=== PATIENT | female | born 1975 | race Caucasian/White ===

== ENCOUNTER 2018-10-03 15:25 | Emergency (ER) | payer OTHER ==
[~2018-10-03] VITALS: Ht 162.6 cm; Wt 142.9 kg
[2018-10-03] MEDS ORDERED: fentaNYL PF VIAL 100 MCG/2 ML VIAL IV ONE (16:00)
--- NOTE | 2018-10-03 16:07 | PHYS DOC ---
Adult General Chief Complaint Chief Complaint: abdominal pain HPI HPI Patient is a 43 year old female who presents with complaining of abdominal pain. Patient complaining of intermittent episodes of right upper quadrant pain for several months that getting worse for the last 3 days. Patient complaining of sharp pain of right upper quadrant that usually happen after eating without radiation. Patient complaining of nausea without vomiting. Patient states she had the episode of diarrhea that improved. Patient denies fever and chills, urinary symptoms, vaginal bleeding or discharge. Patient states she is concern for her gallbladder. Patient complaining of bilateral lower extremity erythema and edema of the last few days and states she thinks she has cellulitis. Patient did not have history of diabetes. Patient also states she ran out of her Depakote for one week and needs refill of her medicine because she does not have a primary care physician. Review of Systems Review of Systems Constitutional: Denies fever or chills [] Eyes: Denies change in visual acuity, redness, or eye pain [] HENT: Denies nasal congestion or sore throat [] Respiratory: Denies cough or shortness of breath [] Cardiovascular: No additional information not addressed in HPI [] GI: Reports abdominal pain, nausea, diarrhea [] : Denies dysuria or hematuria [] Musculoskeletal: Denies back pain or joint pain [] Integument: Denies rash, reports erythema] Neurologic: Denies headache, focal weakness or sensory changes [] Endocrine: Denies polyuria or polydipsia [] All other systems were reviewed and found to be within normal limits, except as documented in this note. Current Medications Current Medications Current Medications Medications (Trade) Dose Ordered Sig/[facility] Start Time Stop Time Status Last Admin Dose Admin Fentanyl Citrate (Fentanyl 2ml Vial) 50 mcg 1X ONCE 10/03/18 16:00 10/03/18 16:40 DC 10/03/18 17:00 50 MCG Allergies Allergies Allergies Coded Allergies Type Severity Reaction Last Updated Verified Penicillins Allergy Intermediate 10/03/18 Yes cephalexin Allergy Intermediate 10/03/18 Yes Physical Exam Physical Exam Constitutional: Well nourished, mild distress, non-toxic appearance. [] HENT: Normocephalic, atraumatic, bilateral external ears normal, oropharynx moist, no oral exudates, nose normal. [] Eyes: PERRLA, EOMI, conjunctiva normal, no discharge. [] Neck: Normal range of motion, no tenderness, supple, no stridor. [] Cardiovascular:Heart rate regular rhythm, no murmur [] Lungs & Thorax: Bilateral breath sounds clear to auscultation [] Abdomen: Bowel sounds normal, soft, right upper quadrant guarding and tenderness , no masses, no pulsatile masses. [] Skin: Warm, dry, no erythema, no rash. [] Back: No tenderness, no CVA tenderness. [] Extremities: No tenderness, no cyanosis, no clubbing, ROM intact, bilateral anterior leg mild erythema and trace edema without tenderness . Neurologic: Alert and oriented X 3, normal motor function, normal sensory function, no focal deficits noted. [] Psychologic: Affect anxious, judgement normal, mood normal. [] Current Patient Data Vital Signs Vital Signs Date Time Temp Pulse Resp B/P (MAP) Pulse Ox O2 Delivery O2 Flow Rate FiO2 10/03/18 17:00 98 Room Air 10/03/18 15:30 98.8 92 23 149/91 (110) 98.8 Lab Values Laboratory Tests Test 10/03/18 15:40 10/03/18 15:49 10/03/18 16:30 Urine Collection Type Unknown Urine Color Yellow Urine Clarity Cloudy Urine pH 6.0 Urine Specific Harrison 1.020 Urine Protein Negative mg/dL (NEG-TRACE) Urine Glucose (UA) Negative mg/dL (NEG) Urine Ketones (Stick) Negative mg/dL (NEG) Urine Blood Moderate (NEG) Urine Nitrite Positive (NEG) Urine Bilirubin Negative (NEG) Urine Urobilinogen Dipstick 1.0 mg/dL (0.2 mg/dL) Urine Leukocyte Esterase Large (NEG) Urine RBC 3-5 /HPF (0-2) Urine WBC >40 /HPF (0-4) Urine Squamous Epithelial Cells Mod /LPF Urine Bacteria Many /HPF (0-FEW) Urine Opiates Screen Neg (NEG) Urine Methadone Screen Neg (NEG) Urine Barbiturates Neg (NEG) Urine Phencyclidine Screen Pos (NEG) Urine Amphetamine/Methamphetamine Pos (NEG) Urine Benzodiazepines Screen Neg (NEG) Urine Cocaine Screen Neg (NEG) Urine Cannabinoids Screen Neg (NEG) Urine Ethyl Alcohol Neg (NEG) POC Urine HCG, Qualitative Hcg negative (Negative) White Blood Count 9.2 x10^3/uL (4.0-11.0) Red Blood Count 4.55 x10^6/uL (3.50-5.40) Hemoglobin 13.5 g/dL (12.0-15.5) Hematocrit 40.6 % (36.0-47.0) Mean Corpuscular Volume 89 fL (79-100) Mean Corpuscular Hemoglobin 30 pg (25-35) Mean Corpuscular Hemoglobin Concent 33 g/dL (31-37) Red Cell Distribution Width 14.0 % (11.5-14.5) Platelet Count 305 x10^3/uL (140-400) Neutrophils (%) (Auto) 61 % (31-73) Lymphocytes (%) (Auto) 28 % (24-48) Monocytes (%) (Auto) 9 % (0-9) Eosinophils (%) (Auto) 1 % (0-3) Basophils (%) (Auto) 1 % (0-3) Neutrophils # (Auto) 5.6 x10^3uL (1.8-7.7) Lymphocytes # (Auto) 2.5 x10^3/uL (1.0-4.8) Monocytes # (Auto) 0.8 x10^3/uL (0.0-1.1) Eosinophils # (Auto) 0.1 x10^3/uL (0.0-0.7) Basophils # (Auto) 0.1 x10^3/uL (0.0-0.2) Sodium Level 139 mmol/L (136-145) Potassium Level 3.5 mmol/L (3.5-5.1) Chloride Level 101 mmol/L (98-107) Carbon Dioxide Level 26 mmol/L (21-32) Anion Gap 12 (6-14) Blood Urea Nitrogen 17 mg/dL (7-20) Creatinine 0.7 mg/dL (0.6-1.0) Estimated GFR (Cockcroft-Gault) 91.3 BUN/Creatinine Ratio 24 (6-20) H Glucose Level 115 mg/dL (70-99) H Lactic Acid Level 1.9 mmol/L (0.4-2.0) Calcium Level 9.0 mg/dL (8.5-10.1) Total Bilirubin 0.3 mg/dL (0.2-1.0) Aspartate Amino Transferase (AST) 15 U/L (15-37) Alanine Aminotransferase (ALT) 22 U/L (14-59) Alkaline Phosphatase 71 U/L (46-116) Troponin I Quantitative < 0.017 ng/mL (0.000-0.055) [id number]-Type Natriuretic Peptide 364 pg/mL (0-124) H Total Protein 6.7 g/dL (6.4-8.2) Albumin 3.5 g/dL (3.4-5.0) Albumin/Globulin Ratio 1.1 (1.0-1.7) Lipase 283 U/L (73-393) Laboratory Tests 10/03/18 16:30 Laboratory Tests 10/03/18 16:30 EKG EKG [] Radiology/Procedures Radiology/Procedures [facility] [address] [place] [address] IMAGING REPORT Signed PATIENT: KENYA YAN ACCOUNT: [id number] : 1975 LOCATION: ER AGE: 43 SEX: F EXAM STATUS: REG ER ORD. PHYSICIAN: BOUBACAR ARRINGTON MD REASON: right upper quadrant pain PROCEDURE: ABDOMEN LTD Examination: Ultrasound abdomen right upper quadrant HISTORY: History of right upper quadrant pain COMPARISON: None available FINDINGS: The echogenicity liver grossly appears unremarkable.The visualized gallbladder demonstrate no evidence of gallstones. The right kidney measures 13.2 cm in length and the visualized IVC is within normal limits of dimension. Examination limited due to bowel gas. The pancreas is not well-visualized due to bowel gas IMPRESSION: Unremarkable exam. Electronically signed by: Deric Streeter MD (10/03/2018 4:52 PM) [id number] DICTATED and SIGNED BY: DERIC STREETER MD DATE: 10/03/18 0051 Course & Med Decision Making Course & Med Decision Making Pertinent Labs and Imaging studies reviewed. (See chart for details) discharge: I've spoken with the patient and/or caregivers. I've explained the patient's condition, diagnosis and treatment plan based on information available to me at this time. I've answered the patient's and/or caregivers questions and addressed any concerns. The patient and/or caregivers have a good understanding the patient's diagnosis, condition and treatment plan as can be expected at this point. Vital signs have been stabilized. The patient's condition is stable for discharge from the emergency department. The patient will pursue further outpatient evaluation with her primary care provider or other designated consulting physician as outlined in the discharge instructions. Patient and/or caregivers are agreeable to this plan of care and follow-up instructions have been explained in detail. The patient and/or caregivers have received these instructions in written format and expressed understanding of these discharge instructions. The patient and her caregivers are aware that if any significant change in condition or worsening of symptoms should prompt him to immediately return to this of the closest emergency department. If an emergent department is not readily available I would encourage him to call 911. Dragon Disclaimer Dragon Disclaimer This electronic medical record was generated, in whole or in part, using a voice recognition dictation system. Departure Departure Impression: Primary Impression: Urinary tract infection Additional Impressions: Methamphetamine abuse PCP (phencyclidine) abuse Morbid obesity Abdominal pain Lower extremity cellulitis Anxiety Disposition: HOME, SELF-CARE (at 1737) Condition: IMPROVED Referrals: NO PCP (PCP) Patient Instructions: Medication Refill, Emergency Department, Substance Abuse- Brief, Urinary Tract Infection Additional Instructions: Drink plenty of liquids Follow-up with your primary care physician in 1-2 days for refill of medication Return to ER if not getting better Scripts Naproxen (NAPROSYN) 500 Mg Tablet 1 TAB PO BID for pain, #20 TAB Prov: BOUBACAR ARRINGTON MD 10/03/18 Sulfamethoxazole/Trimethoprim (BACTRIM DS TABLET) 1 Each Tablet 1 TAB PO BID for infection, #14 TAB Prov: BOUBACAR ARRINGTON MD 10/03/18 Problem Qualifiers Primary Impression: Urinary tract infection Urinary tract infection type: site unspecified Hematuria presence: without hematuria Qualified Codes: N39.0 - Urinary tract infection, site not specified Additional Impressions: Abdominal pain Abdominal location: unspecified location Qualified Codes: R10.9 - Unspecified abdominal pain Lower extremity cellulitis Laterality: unspecified laterality Qualified Codes: L03.119 - Cellulitis of unspecified part of limb BOUBACAR ARRINGTON MD Oct 03, 2018 16:07
[2018-10-03 16:08] LABS: BILIRUBIN,URINE NEGATIVE (NEG); CLARITY,URINE CLOUDY; COLOR,URINE YELLOW; NITRITE,URINE POSITIVE (NEG); PROTEIN,URINE NEGATIVE (NEG-TRACE)
[2018-10-03 16:13] LABS: BACTERIA,URINE MANY /HPF (0-FEW); SQUAMOUS EPITHELIAL CELL,UR MOD /LPF; WBC,URINE >40 /HPF (0-4)
[2018-10-03 16:19] LABS: AMPHETAMINE/METHAMPHETAMINE POS (NEG); BARBITURATES NEG (NEG); BENZODIAZEPINES NEG (NEG); CANNABINOIDS NEG (NEG); COCAINE NEG (NEG); METHADONE NEG (NEG); OPIATES NEG (NEG); PHENCYCLIDINE POS (NEG)
[2018-10-03 16:39] LABS: BASO # 0.1 x10^3/uL (0.0-0.2); BASO % 1 % (0-3); EOS # 0.1 x10^3/uL (0.0-0.7); EOS % 1 % (0-3); HEMATOCRIT 40.6 % (36.0-47.0); HEMOGLOBIN 13.5 g/dL (12.0-15.5); LYMPH # 2.5 x10^3/uL (1.0-4.8); LYMPH % 28 % (24-48); MEAN CORPUSCULAR HEMOGLOBIN 30 pg (25-35); MEAN CORPUSCULAR HGB CONC 33 g/dL (31-37); MEAN CORPUSCULAR VOLUME 89 fL (79-100); MONO # 0.8 x10^3/uL (0.0-1.1); MONO % 9 % (0-9); NEUT # 5.6 x10^3uL (1.8-7.7); NEUT % 61 % (31-73); PLATELET COUNT 305 x10^3/uL (140-400); RED BLOOD COUNT 4.55 x10^6/uL (3.50-5.40); WHITE BLOOD COUNT 9.2 x10^3/uL (4.0-11.0)
[2018-10-03 16:53] LABS: CREATININE 0.7 mg/dL (0.6-1.0); GFR 91.3; POTASSIUM 3.5 mmol/L (3.5-5.1)
--- NOTE | 2018-10-03 16:55 | RAD ---
Examination: Ultrasound abdomen right upper quadrant HISTORY: History of right upper quadrant pain COMPARISON: None available FINDINGS: The echogenicity liver grossly appears unremarkable.The visualized gallbladder demonstrate no evidence of gallstones. The right kidney measures 13.2 cm in length and the visualized IVC is within normal limits of dimension. Examination limited due to bowel gas. The pancreas is not well-visualized due to bowel gas IMPRESSION: Unremarkable exam. Electronically signed by: Deric Streeter MD (10/03/2018 4:52 PM) [facility]
[2018-10-03 16:57] LABS: ALBUMIN 3.5 g/dL (3.4-5.0); ALBUMIN/GLOBULIN RATIO 1.1 (1.0-1.7); TOTAL BILIRUBIN 0.3 mg/dL (0.2-1.0); TOTAL PROTEIN 6.7 g/dL (6.4-8.2)
[2018-10-03] MEDS ORDERED: SULF1TAB24 PO (17:41)
[2018-10-03] MEDS ORDERED: NAPR-683 PO (17:41)
[2018-10-03 17:51] VITALS: BP 147/67
--- NOTE | 2018-10-09 10:04 | VNOTE ---
CALL BACK NOTE CALL BACK Microbiology 10/03/18 Urine Culture - Final, Complete 10/03/18 Urine Culture Result 1 (PATRICK) - Final, Complete 10/03/18 Antimicrobic Susceptibility - Final, Complete Patient was put on Bactrim to cover her for cellulitis and UTI, her urine culture shows she is resistant to Bactrim. Called and left a voicemail. LYUDMILA JOSEPH APRN Oct 09, 2018 10:04
== END 2018-10-03 18:20 | disposition home or self-care (01) ==
LOC: EDBD 15:25 → ER 15:25
DX: N39.0 Urinary tract infection, site not specified (principal); R10.11 Right upper quadrant pain; L03.116 Cellulitis of left lower limb; L03.115 Cellulitis of right lower limb; E66.01 Morbid (severe) obesity due to excess calories; Z68.43 Body mass index [BMI] 50.0-59.9, adult; F41.9 Anxiety disorder, unspecified; F16.10 Hallucinogen abuse, uncomplicated; F15.10 Other stimulant abuse, uncomplicated; R60.0 Localized edema; Z88.0 Allergy status to penicillin; Z88.1 Allergy status to other antibiotic agents
CPT/HCPCS: 36415; 76705; 80053; 80307; 81001; 81025; 83605; 83690; 83880; 84484; 85025; 87086; 96374; 99284; J3010; 87186

== ENCOUNTER 2021-04-30 12:37 | Emergency (ER) | payer SELFPAY ==
[~2021-04-30] VITALS: Ht 165.1 cm; Wt 122.5 kg
[~2021-04-30 12:37] MED LIST: NAPR-683 PO; SULF1TAB24 PO
[2021-04-30] MEDS ORDERED: IV NORMAL SALINE 1000ML BAG 1,000 ML IV ONE (13:30)
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
[2021-04-30 14:14] LABS: BILIRUBIN,URINE SMALL (NEG); CLARITY,URINE CLOUDY; COLOR,URINE AMBER; NITRITE,URINE POSITIVE (NEG); PROTEIN,URINE 100 mg/dL (NEG-TRACE); UROBILINOGEN,URINE 0.2 mg/dL (0.2 mg/dL)
[2021-04-30 14:23] LABS: BACTERIA,URINE MODERATE /HPF (0-FEW); BARBITURATES NEG (NEG); BENZODIAZEPINES NEG (NEG); CANNABINOIDS NEG (NEG); COCAINE POS (NEG); HYALINE CASTS, URINE MODERATE /HPF; METHADONE NEG (NEG); OPIATES NEG (NEG); PHENCYCLIDINE POS (NEG)
[2021-04-30 14:24] LABS: RBC,URINE OCC /HPF (0-2)
[2021-04-30 14:27] LABS: AMPHETAMINE/METHAMPHETAMINE POS (NEG)
[2021-04-30] MEDS ORDERED: HALOPERIDOL LACTATE 5 MG/ML VIAL. IVP ONE (14:30)
--- NOTE | 2021-04-30 14:36 | RAD ---
XR CHEST 1V History: Chest pain Comparison: 09/15/2018 Technique: AP radiograph of the chest. Findings: The lungs are adequately and symmetrically inflated. No airspace consolidation, pleural effusion or p neumothorax. The cardiomediastinal silhouette and pulmonary vasculature are within normal limits. No acute osseous abnormality. Soft tissues are unremarkable. Impression: 1. No acute cardiopulmonary process. Electronically signed by: Jamarcus Osuna MD (04/30/2021 2:34 PM) [id number]
[2021-04-30 15:26] LABS: BASO # 0.1 x10^3/uL (0.0-0.2); BASO % 1 % (0-3); EOS % 0 % (0-3); HEMATOCRIT 42.1 % (36.0-47.0); HEMOGLOBIN 14.5 g/dL (12.0-15.5); LYMPH # 2.6 x10^3/uL (1.0-4.8); LYMPH % 23 % (24-48); MEAN CORPUSCULAR HEMOGLOBIN 30 pg (25-35); MEAN CORPUSCULAR HGB CONC 35 g/dL (31-37); MEAN CORPUSCULAR VOLUME 87 fL (79-100); MONO # 0.9 x10^3/uL (0.0-1.1); MONO % 8 % (0-9); NEUT # 7.4 x10^3/uL (1.8-7.7); NEUT % 67 % (31-73); PLATELET COUNT 275 x10^3/uL (140-400); RED BLOOD COUNT 4.86 x10^6/uL (3.50-5.40); RED CELL DISTRIBUTION WIDTH 14.5 % (11.5-14.5); WHITE BLOOD COUNT 10.9 x10^3/uL (4.0-11.0)
[2021-04-30 15:39] LABS: CALCIUM 8.7 mg/dL (8.5-10.1); CREATININE 0.8 mg/dL (0.6-1.0); GFR 77.2; POTASSIUM 3.3 mmol/L (3.5-5.1)
[2021-04-30 15:45] LABS: ALBUMIN 3.8 g/dL (3.4-5.0); ALBUMIN/GLOBULIN RATIO 1.1 (1.0-1.7); TOTAL BILIRUBIN 1.1 mg/dL (0.2-1.0); TOTAL PROTEIN 7.4 g/dL (6.4-8.2)
[2021-04-30] MEDS ORDERED: FLUORESCEIN OPHTH TEST STRIP. OU ONE (16:15)
[2021-04-30] MEDS ORDERED: TETRACAINE 0.5% OPHTH SOLUTION 4ML BOTTLE. OU ONE (16:15)
[2021-04-30] MEDS ORDERED: CIPROFLOXACIN 400MG PREMIX 200 ML IV ONE (16:15)
--- NOTE | 2021-04-30 16:24 | RAD ---
CT HEAD/BRAIN WO Date: 04/30/2021 4:13 PM Clinical Indication: Reason: mental status change / Spl. Instructions: / History: Comparison: None. Technique: 5 mm axial tomographic images were obtained of the head without contrast. These were view ed on brain and bone windows. One or more of the following dose reduction techniques were utilized: A utomated exposure control (AEC), Adjustment of mA and/or kV according to patient size, Use of iterati ve reconstruction technique such as ASiR, CT scan done according to ALARA and image gently/image joshi ly Findings: The brain parenchyma is normal in attenuation. No intra- or extra-axial mass or fluid collection. No acute hemorrhage. The ventricles are normal in size, shape, and morphology. The martines-white matter clifton ction is normal. The subarachnoid cisterns are patent. The visualized paranasal sinuses are normal. The visualized portions of the orbits and globes are no rmal. The mastoid air cells are clear. The rack washer topogram shows no lytic lesion or fracture. Impression: No acute intracranial process. Electronically signed by: Evelio Gunter MD (04/30/2021 4:21 PM) [facility]
--- NOTE | 2021-04-30 16:36 | EKG ---
[facility] [address] [place] [address] Test Date: 2021-04-30 Test Time: 13:10:06 Pat Name: KENYA YAN Department: Room: Gender: F Sqe: : 1975 Requested By: OLI WINTERS Order Number: [id number] Reading MD: Edis Restrepo Measurements Intervals [place] Rate: 115 P: 47 IN: 152 QRS: -72 QRSD: 84 T: 59 QT: 332 QTc: 461 Interpretive Statements SINUS TACHYCARDIA ABNORMAL LEFT AXIS DEVIATION S1,S2,S3 PATTERN LEFT ANTERIOR FASCICULAR BLOCK ABNORMAL ECG RI6.01 No previous ECG available for comparison Electronically Signed On 05-04-2021 9:53:14 MANAGEMENT SME by Edis Restrepo
[2021-04-30 17:46] LABS: VAL ACID 4 mcg/mL (50-100)
[2021-04-30] MEDS ORDERED: POLY10DR3 EACHEYE (20:39)
[2021-04-30] MEDS ORDERED: CIPR250T30 PO (20:39)
[2021-04-30 21:10] VITALS: BP 126/59
--- NOTE | 2021-05-04 11:19 | NUR ---
IP: Attempted to contact pt concerning covid results. No answer, Left a voicemail to return the call.
== END 2021-04-30 21:14 | disposition home or self-care (01) ==
LOC: ER 13:38
DX: N39.0 Urinary tract infection, site not specified (principal); R31.9 Hematuria, unspecified; H10.9 Unspecified conjunctivitis; F15.10 Other stimulant abuse, uncomplicated; R07.89 Other chest pain; F31.9 Bipolar disorder, unspecified; I10 Essential (primary) hypertension; I25.10 Atherosclerotic heart disease of native coronary artery without angina pectoris; F17.200 Nicotine dependence, unspecified, uncomplicated; Z90.89 Acquired absence of other organs; Z98.51 Tubal ligation status; Z88.0 Allergy status to penicillin; Z88.1 Allergy status to other antibiotic agents
CPT/HCPCS: 36415; 70450; 71045; 80053; 80164; 80307; 81001; 81025; 82550; 84484; 85025; 87086; 87426; 87491; 87591; 93005; 96361; 96365; 96366; 96375; 99285; G0480; J0744; J1630; J2060; J7030; U0003; U0005